=== PATIENT | female | born 1935 | race Caucasian/White ===

== ENCOUNTER 2016-11-05 11:55 | Emergency (ER) | payer MEDICARE | END 2016-11-05 12:30 | disposition home or self-care (01) | LOC: ER1 11:55 | DX: R21 Rash and other nonspecific skin eruption (principal); E03.9 Hypothyroidism, unspecified; Z79.899 Other long term (current) drug therapy | CPT/HCPCS: 99282 ==

== ENCOUNTER 2016-12-29 16:20 | Inpatient (IN) | payer MEDICARE, MEDICAID ==
[~2016-12-29] VITALS: Ht 157.5 cm; Wt 59.1 kg
[2016-12-29 17:09] LABS: HEMOGLOBIN 12.8 gm/dl (12.3-15.3); RED BLOOD COUNT 4.39 M/UL (4.00-5.10); WHITE BLOOD COUNT 8.1 K/UL (4.5-11.0)
[2016-12-29 17:35] LABS: BUN/CREATININE RATIO 16 (0-10)
[2016-12-30] MEDS ORDERED: TRAZODONE HCL50 MG PO (00:59)
[2016-12-30] MEDS ORDERED: LOSARTAN POTASS50 MG PO (00:59)
[2016-12-30] MEDS ORDERED: SERTRALINE HCL100 MG PO (01:00)
[2016-12-30] MEDS ORDERED: LEVOTHYROXINE75 MCG PO (01:00)
[2016-12-30 06:58] LABS: HEMOGLOBIN 12.6 gm/dl (12.3-15.3); RED BLOOD COUNT 4.36 M/UL (4.00-5.10); WHITE BLOOD COUNT 7.6 K/UL (4.5-11.0)
[2016-12-30 07:29] LABS: BUN/CREATININE RATIO 17 (0-10)
--- NOTE | 2016-12-31 11:18 | NUR ---
REPORTED TO DANIELLA C/O DR. RODRIGUEZ R/T PATIENT LOW B/P AND ACKNOWLEDGED.
== END 2017-01-01 10:18 | disposition home or self-care (01) | DRG 312 ==
LOC: ER1 16:20 → MED SURG 4 18:30 → ZEROF 18:30 → MED SURG 4 18:30
PROVIDERS: Emergency Medicine; ADMIT Internal Medicine
DX: R55 Syncope and collapse (principal); E87.2 Acidosis; E87.1 Hypo-osmolality and hyponatremia; E03.9 Hypothyroidism, unspecified; F41.9 Anxiety disorder, unspecified; I16.0 Hypertensive urgency; I10 Essential (primary) hypertension; S80.02XA Contusion of left knee, initial encounter; S80.01XA Contusion of right knee, initial encounter; R53.1 Weakness; M25.462 Effusion, left knee; M51.36 Other intervertebral disc degeneration, lumbar region; W18.30XA Fall on same level, unspecified, initial encounter; Y92.481 Parking lot as the place of occurrence of the external cause
CPT/HCPCS: ECHO; 36415; 36600; 70450; 70551; 71010; 72100; 72148; 72170; 73564; 80048; 80053; 81001; 82550; 82553; 82803; 83605; 83874; 84439; 84443; 84484; 85025; 85610; 85730; 93005; 93306; 93880; 97530; 97535; 99285; G0378; Q0162

== ENCOUNTER 2020-08-20 09:20 | Emergency (ER) | payer MEDICARE, OTHER ==
[~2020-08-20 09:20] MED LIST: BUSPIRONE HCL10 MG PO; LEVOTHYROXINE75 MCG PO; LOSARTAN POTAS100 MG PO; LOSARTAN POTASS50 MG PO; NORCO 5-325 TA1 EACH PO; SERTRALINE HCL100 MG PO; SYNTHROID100 MCG PO; SYNTHROID25 MCG PO; TRAZODONE HCL50 MG PO
[2020-08-20 10:40] LABS: HEMOGLOBIN 11.8 gm/dl (12.3-15.3); RED BLOOD COUNT 4.09 M/UL (4.00-5.10); WHITE BLOOD COUNT 5.6 K/UL (4.5-11.0)
[2020-08-20 11:06] LABS: BUN/CREATININE RATIO 23 (0-10)
[2020-08-20] MEDS ORDERED: LOSARTAN POTAS100 MG PO (14:37)
[2020-08-20] MEDS ORDERED: BUSPIRONE HCL5 MG PO (14:37)
[2020-08-20] MEDS ORDERED: LEVOTHYROXINE100 MC2 PO (14:37)
== END 2020-08-20 14:50 | disposition home or self-care (01) ==
LOC: ER1 09:20
PROVIDERS: Physician Assistant
DX: R10.11 Right upper quadrant pain (principal); R10.31 Right lower quadrant pain; R60.0 Localized edema; F41.9 Anxiety disorder, unspecified; J84.10 Pulmonary fibrosis, unspecified; R11.2 Nausea with vomiting, unspecified; I10 Essential (primary) hypertension; E03.9 Hypothyroidism, unspecified; Z79.899 Other long term (current) drug therapy
CPT/HCPCS: 71046; 80053; 81001; 82550; 82553; 83690; 83874; 83880; 84439; 84443; 84484; 85025; 93005; 96374; 99284; J2405; J7040; Q9965

== ENCOUNTER 2021-01-26 05:48 | Emergency (ER) | payer MEDICARE ==
[~2021-01-26 05:48] MED LIST changes: +BUSPIRONE HCL5 MG PO; +LEVOTHYROXINE100 MC2 PO
[2021-01-26 06:54] LABS: HEMOGLOBIN 12.2 gm/dl (12.3-15.3); RED BLOOD COUNT 4.26 M/UL (4.00-5.10); WHITE BLOOD COUNT 5.5 K/UL (4.5-11.0)
[2021-01-26 07:27] LABS: BUN/CREATININE RATIO 24 (0-10)
[2021-01-26] MEDS ORDERED: ZOFRAN ODT 4 MG4 MG PO (10:31)
[2021-01-26] MEDS ORDERED: OMNICEF 300 MG300 MG PO (10:31)
[2021-01-26] MEDS ORDERED: MIRALAX17 GM PO (10:32)
== END 2021-01-26 10:46 | disposition home or self-care (01) ==
LOC: ER1 05:48
PROVIDERS: Emergency Medicine; Family Medicine
DX: N39.0 Urinary tract infection, site not specified (principal); K59.00 Constipation, unspecified; F41.9 Anxiety disorder, unspecified; I10 Essential (primary) hypertension
CPT/HCPCS: 80053; 80307; 81001; 82550; 82553; 83690; 83874; 84484; 85025; 87077; 87086; 87186; 93005; 99284; G0480; Q9967